=== PATIENT | male | born 1955 | race Caucasian/White ===

== ENCOUNTER 2017-05-12 23:00 | Inpatient (IN) | payer OTHER ==
[~2017-05-12] VITALS: Ht 182.9 cm; Wt 86.2 kg
--- NOTE | ~2017-05-12 | PN ---
Unit #: [id number] #: [id number] Patient: SURENDRA BERMEO [id number] [facility] [address] [place] [address] [id number] MR#: [id number] NAME: SURENDRA BERMEO. ROOM: P254 Age: 61 Sex: M Admission Date: 05/13/2017 : 1955 Attending Physician: Tej Gonzalez M.D. Admitting Physician: Tej Gonzalez M.D. Primary Care Physician: Primary Care Physician Linnette BAZAN PROGRESS NOTES DATE OF SERVICE 05/15/2017 DISCUSSION Mr. Bermeo is a 61-year-old white male who was seen today. Chart was reviewed and case was discussed with staff. He has been anxious, withdrawn, and rather seclusive to himself. Meanwhile, he has been cooperative with the treatment recommendations and has been taking the medications and tolerating them fairly well with no reported side effects. MENTAL STATUS EXAMINATION An elderly white male who is casually dressed with fair personal hygiene, appears to be in no acute distress or discomfort. He was awake and alert on interaction with intact orientation. His mood is anxious and depressed with congruent affect. His speech is slow and restricted in content. He reports having some suicidal ideations. He denies any homicidal ideations. His insight and judgment remain slightly impaired. TREATMENT PLAN 1. We will continue him on his current medications and treatment protocol. We will monitor his response to the medications and make further adjustments as needed. 2. We will continue to follow up. Dictated by... Dario Giordano/skylar TD: 05/16/2017 07:50 JOB #: [id number] Unit #: [id number] #: [id number] Patient: SURENDRA BERMEO PROGRESS NOTES Page 1 of 1 X Tej Gonzalez MD PROGRESS NOTE
--- NOTE | ~2017-05-12 | HP ---
Unit #: [id number] #: [id number] Patient: SURENDRA CRUZ [id number] [facility] [address] [place] [address] [id number] I MR#: [id number] NAME: SURENDRA CRUZ ROOM: P254 Age: 61 Sex: M Admission Date: 05/13/2017 : 1955 Attending Physician: Tej Gonzalez M.D. Admitting Physician: Tej Gonzalez M.D. Primary Care Physician: Primary Care Physician No HISTORY AND PHYSICAL HISTORY OF PRESENT ILLNESS Surendra is a 61-year-old male admitted on 05/13/2017 to [facility] for suicidal ideation with a plan to overdose on heroin. PAST MEDICAL HISTORY 1. Seizure disorder. 2. Hypertension. PAST SURGICAL HISTORY None. ALLERGIES No known drug allergies. SOCIAL HISTORY Smokes 1 pack of cigarettes daily. Occasional binge alcohol use and reports use of prescription pain pills. He is currently single and living alone. FAMILY HISTORY Noncontributory. REVIEW OF SYSTEMS CONSTITUTIONAL: No fever or chills. HEENT: Denies any sore throat, ear pain or runny nose. CARDIOVASCULAR: Denies chest pain, irregular heart rhythm or palpitations. CHEST: Denies shortness of breath or cough. No hemoptysis. GASTROINTESTINAL: Denies nausea, vomiting, diarrhea or chronic constipation. ENDOCRINE: Denies history of increased thirst or urination. No recent significant weight loss or gain. GENITOURINARY: Denies dysuria, frequency, or hematuria. SKIN: Denies any rashes. HEMATOLOGIC: Denies history of increased bleeding or bruising. MUSCULOSKELETAL: Denies any hot, swollen joints. No generalized muscle pain. NEUROLOGIC: Denies problems with vision or speech. No frequent, severe headaches. No numbness, tingling or weakness in any extremities. Denies loss of bladder or bowel control. CURRENT MEDICATIONS 1. B vitamin. 2. Seroquel. Unit #: [id number] #: [id number] Patient: SURENDRA CRUZ 3. Tegretol. 4. Prazosin. 5. Keppra. 6. Acamprosate. 7. Maxalt. 8. Clonidine. PHYSICAL EXAMINATION GENERAL: Alert, oriented, in no acute distress. VITAL SIGNS: Blood pressure 153/89, heart rate 72, respirations 18, temperature 98.6. HEIGHT: 6 feet 0. WEIGHT: 190 pounds. SKIN: Warm and dry without rash or lesion. HEENT: Normocephalic. TMs not viewed. Oral and nasal passages clear. Conjunctivae clear. PERRLA. EOMs intact. NECK: Supple without lymphadenopathy or thyromegaly. HEART: Regular rate and rhythm without murmur. LUNGS: Clear. ABDOMEN: Soft, nontender, without masses or hepatosplenomegaly. : Not done. EXTREMITIES: No evidence of cyanosis, clubbing or edema. Moves all without focal deficit. NEUROLOGICAL: Grossly within normal limits. Cranial Nerves: II: Visual mcarthur are intact. III, IV AND : Extraocular movements are intact. Pupils are equal, round and reactive to light. V: Facial sensation is grossly normal. VII: Facial movements and expression are normal. VIII: Auditory acuity grossly intact. IX, X: Uvula is midline. Phonation is normal. XI: Patient shrugs shoulders and turns head normally. XII: Tongue protrudes in the midline. Sensory and Motor Function: Sensory and motor sensation is grossly normal. Motor: moves all extremities well. Coordination: Gait is normal. Deep Tendon Reflexes: Intact. IMPRESSION 1. Psychiatric admission. 2. Hypertension. 3. Seizure disorder. RECOMMENDATIONS PSYCHIATRIC: Per psychiatrist. MEDICAL: No contraindication to participate in facility's activities. MEDICAL PROGNOSIS Good. MEDICAL CONDITION Stable. Dictated by... Janki Lerma A.P.R.N. [facility] Unit #: [id number] #: [id number] Patient: SURENDRA CRUZ TD: 05/13/2017 19:50 JOB #: [id number] HISTORY AND PHYSICAL Page 1 of 1 X JANKI GALEANA APRN HISTORY AND PHYSICAL
--- NOTE | ~2017-05-12 | PA ---
Unit #: [id number] #: [id number] Patient: SURENDRA BERMEO [id number] [facility] [address] [place] [address] [id number] I MR#: [id number] NAME: SURENDRA BERMEO ROOM: P254 Age: 61 Sex: M Admission Date: 05/13/2017 : 1955 Date of Assessment: Attending Physician: Tej Gonzalez M.D. Admitting Physician: Tej Gonzalez M.D. Primary Care Physician: Primary Care Physician No PSYCHIATRIC ASSESSMENT DATE OF SERVICE 05/13/2017. IDENTIFYING DATA Mr. Bermeo is a 61-year-old, single, disabled white male, who is a resident of [place], [place], and is known to us from previous encounters and was transferred to from [facility] Emergency Room on a voluntary basis. CHIEF COMPLAINT "Suicidal ideation with plan to overdose on heroin." HISTORY OF PRESENT ILLNESS Mr. Bermeo is a 61-year-old white male with a history of mood disorder and substance abuse, who is known to me from previous encounter, was transferred to us from the emergency room where he presented with suicidal ideation and a plan to overdose on heroin that he wants to kill himself and has been feeling like this for the last few days and he stated "I got to do it, I've the right to kill myself and do it on my own." The patient reports that this is his third time attempting to commit suicide though he denied making any attempts and just having a plan. When asked how he can be helped, he reports he cannot be helped. When asked why he came to the ER, he stated "give me a shot and I will show you how to kill myself." The patient reports suicidal ideation with plan to overdose and that he has had past suicide attempts. He does report increasing depression, anxiety, feelings of hopelessness and helplessness, and as such, recommendation for inpatient level of care for safety and stabilization was made. The patient was transferred to us. SUBSTANCE ABUSE HISTORY The patient reports history of alcohol, cannabis, cocaine, and opioid abuse, and reports that he is currently clean as he stated he had been to [facility] day program in [place] and has been staying sober since he went to the treatment. PAST PSYCHIATRIC HISTORY The patient has had a history of multiple inpatient psychiatric hospitalizations at [facility], and [facility] and chemical dependency treatment in [place] and review of the medical records indicate that he currently was supposed to be on Seroquel, but has been noncompliant with medication and as such, has been decompensating. Unit #: [id number] #: [id number] Patient: SURENDRA BERMEO PAST MEDICAL HISTORY The patient's medical history is significant for history of withdrawal seizures and migraine headaches. ALLERGIES No known medication allergies. PERSONAL AND SOCIAL HISTORY A 61-year-old white male, who reports that he is single, unemployed, and lives alone and has poor social support system. MENTAL STATUS EXAMINATION An elderly white male, who was casually dressed with fair personal hygiene, appears to be in no acute distress or discomfort. He was awake and alert on interaction with intact orientation to time, place, and person. His mood was anxious and depressed with a congruent affect. His speech was slow and goal directed. He reports having suicidal ideations, but denies any homicidal ideations, and also denies any auditory or visual hallucinations. His insight and judgment remain significantly impaired. DIAGNOSTIC IMPRESSION Psychiatric: Bipolar disorder, most recent episode depressed, recurrent, moderate, without psychotic features; opioid dependence, moderate. Medical: Migraine headaches, history of withdrawal seizures. Stressors: Moderate psychosocial stressors. TREATMENT PLAN 1. The patient has presented with history of mood disorder and substance abuse and has been decompensating with increasing depression, and will need inpatient hospitalization for safety and stabilization. We will start him back on his home medications. We will adjust the medications and monitor response. 2. Supportive therapy was provided to the patient. 3. Safe, structured, and nourishing environment will be reported. ESTIMATED LENGTH OF STAY 5 to 7 days. ABILITY TO HELP SELF Limited. WILLINGNESS TO HELP SELF The patient appears to be willing to help self. STRENGTHS 1. Communicative. 2. Cooperative. PROBLEMS 1. Chronic dysphoric symptoms. 2. Poor social support system. DISCHARGE CRITERIA This will be contingent upon the patient's ability to show resolution of his depression and anxiety as well as his ability to stay safe to himself, particularly after discharge from the hospital. Unit #: [id number] #: [id number] Patient: SURENDRA BERMEO Dictated by... Dario Giordano/chase CEE: 05/13/2017 07:08 TD: 05/13/2017 08:12 JOB #: [id number] PSYCHIATRIC ASSESSMENT Page 1 of 1 X Tej Gonzalez MD PSYCHIATRIC ASSESSMENT
--- NOTE | ~2017-05-12 | PN ---
Unit #: [id number] #: [id number] Patient: SURENDRA BERMEO [id number] [facility] [address] [place] [address] [id number] MR#: [id number] NAME: SURENDRA BERMEO. ROOM: P254 Age: 61 Sex: M Admission Date: 05/13/2017 : 1955 Attending Physician: Tej Gonzalez M.D. Admitting Physician: Tej Gonzalez M.D. Primary Care Physician: Primary Care Physician Linnette ANDUJAR NOTES DATE OF SERVICE 05/18/2017 DISCUSSION Mr. Bermeo is a 61-year-old white male who was seen today. Chart was reviewed and case was discussed with the staff. (1) __ rather seclusive to himself. Meanwhile, he has been cooperative with the treatment recommendations and has been taking the medications and tolerating them fairly well with no reported side effects. MENTAL STATUS EXAMINATION An elderly white male who is casually dressed with fair personal hygiene, appears to be in no acute distress or discomfort. He was awake and alert with impaired attention and concentration. His mood is anxious with a congruent affect. He denies any suicidal or homicidal ideations and also denies any auditory or visual hallucinations. His insight and judgment remain slightly impaired. TREATMENT PLAN 1. We will continue him on his current treatment protocol. We will monitor his response to medications and make further adjustments as needed. 2. We will continue to follow up. Dictated by... Tej Gonzalez M.D. IAA/bzg TD: 05/19/2017 07:43 JOB #: [id number] Unit #: [id number] #: [id number] Patient: SURENDRA BERMEO PROGRESS NOTES Page 1 of 1 X Tej Gonzalez MD PROGRESS NOTE
--- NOTE | ~2017-05-12 | DS ---
Unit #: [id number] #: [id number] [facility] [id number] [facility] [address] [place] [address] [id number] MR#: [id number] NAME: SURENDRA EBRMEO. ROOM: P254 Age: 61 Sex: M Admission Date: 05/13/2017 : 1955 Discharge Date: 05/19/2017 Attending Physician: Tej Gonzalez M.D. Primary Care Physician: Primary Care Physician No DISCHARGE SUMMARY IDENTIFYING DATA Mr. Bermeo is a 61-year-old, single, white male who is a resident of [place], [place], and is known to us from previous encounter, and was self-referred to the hospital on a voluntary basis. DISCHARGE DIAGNOSES Psychiatric: Bipolar disorder, most recent episode depressed, recurrent, moderate, without psychotic features; opioid dependence, moderate. Medical: Migraine headache, history of withdrawal seizures. Stressors: Mild psychosocial stressors. HISTORY OF PRESENT ILLNESS Please see initial psychiatric evaluation for details. PAST PSYCHIATRIC HISTORY Please see initial psychiatric evaluation for details. PAST MEDICAL HISTORY Please see initial psychiatric evaluation for details. HOSPITAL COURSE The patient was admitted to the adult psychiatric unit at [facility] anal[facility] and was oriented to the hospital environment. Routine p.r.n. medications were initiated, and he was started back on his home medications and medications were adjusted, and Effexor and lithium were maintained and lithium actually was tapered down from 900 to 600 mg a day due to elevated lithium levels and was seen to be doing much better and was calm and cooperative and compliant with treatment recommendations, and was taking the medications regularly. He is tolerating them fairly well and was able to show a decent therapeutic response and was willing to continue treatment on an outpatient basis. He was denying any suicidal or homicidal ideations and as such, it was decided that he will be discharged home and will continue treatment on an outpatient basis. DISCHARGE MEDICATIONS Effexor XR 75 mg a day for depression and lithium 600 mg a day for bipolar. DISCHARGE CONDITION Stable. PROGNOSIS Fair. Unit #: [id number] #: [id number] Patient: SURENDRA BERMEO Dictated by... Dario Giordano/chase TD: 05/19/2017 19:36 JOB #: [id number] DISCHARGE SUMMARY Page 1 of 1 X Tej Gonzalez MD DISCHARGE SUMMARY
--- NOTE | ~2017-05-12 | PN ---
Unit #: [id number] #: [id number] Patient: SURENDRA BERMEO [id number] [facility] [address] [place] [address] [id number] MR#: [id number] NAME: SURENDRA BERMEO. ROOM: P254 Age: 61 Sex: M Admission Date: 05/13/2017 : 1955 Attending Physician: Tej Gonzalez M.D. Admitting Physician: Tej Gonzalez M.D. Primary Care Physician: Primary Care Physician Linnette ANDUJAR NOTES DATE May 14, 2017 DISCUSSION Mr. Bermeo is a 61-year-old white male, who was seen today and chart was reviewed and the case was discussed with the staff. He has been anxious and withdrawn, and reports persistent depressive symptoms with feelings of hopelessness. Meanwhile, he has been taking the medications and the medications were adjusted yesterday, and he has not had time to respond to medication. MENTAL STATUS EXAMINATION An elderly white male, who was casually dressed with fair personal hygiene and appears to be in no acute distress or discomfort. He was awake and alert with impaired attention and concentration. His mood is anxious with a congruent affect. He denies any suicidal or homicidal ideations. His insight and judgment remain slightly impaired. TREATMENT PLAN 1. We will continue him on his current medications and treatment protocol, and will monitor his response to the medications, and make further adjustments as needed. 2. We will continue to followup. Dictated by... Dario Giordano/brenden TD: 05/15/2017 09:43 JOB #: [id number] Unit #: [id number] #: [id number] Patient: SURENDRA BERMEO HORTENS[facility] PROGRESS NOTES Page 1 of 1 X Tej Gonzalez MD PROGRESS NOTE
--- NOTE | ~2017-05-12 | PN ---
Unit #: [id number] #: [id number] Patient: SURENDRA BERMEO [id number] [facility] [address] [place] [address] [id number] MR#: [id number] NAME: SURENDRA BERMEO. ROOM: P254 Age: 61 Sex: M Admission Date: 05/13/2017 : 1955 Attending Physician: Tej Gonzalez M.D. Admitting Physician: Tej Gonzalez M.D. Primary Care Physician: Primary Care Physician Linnette ANDUJAR NOTES DATE May 16, 2017 DISCUSSION Mr. Bermeo is a 61-year-old white male, who was seen today and chart was reviewed and the case was discussed with the staff. He has been anxious, withdrawn, and rather seclusive to himself. Meanwhile, he has been cooperative with the treatment recommendations and he has been taking the medications and tolerating them fairly well with on reported side effects. MENTAL STATUS EXAMINATION An elderly white male, who was casually dressed with fair personal hygiene and appears to be in no acute distress or discomfort. He was awake and alert on interaction with intact orientation. His mood is anxious with a congruent affect. He denies any suicidal or homicidal ideations. His insight and judgment remain slightly impaired. TREATMENT PLAN 1. We will continue him on his current medications and treatment protocol, and will monitor his response to the medications, and make further adjustments as needed. 2. We will continue to followup. Dictated by... Dario Giordano/brenden TD: 05/18/2017 10:46 JOB #: [id number] Unit #: [id number] #: [id number] Patient: SURENDRA BERMEO PROGRESS NOTES Page 1 of 1 X Tej Gonzalez MD PROGRESS NOTE
--- NOTE | ~2017-05-12 | PN ---
Unit #: [id number] #: [id number] Patient: SURENDRA BERMEO [id number] [facility] [address] [place] [address] [id number] MR#: [id number] NAME: SURENDRA BERMEO ROOM: P254 Age: 61 Sex: M Admission Date: 05/13/2017 : 1955 Attending Physician: Tej Gonzalez M.D. Admitting Physician: Dario Giordano NOTES DATE OF SERVICE: 05/17/2017 SUBJECTIVE Mr. Bermeo is a 61-year-old white male who was seen today and chart was reviewed, and case was discussed with the staff. He has been anxious, withdrawn, and rather seclusive himself. Meanwhile, he has been cooperative with treatment recommendations and has been showing improvement in depressive symptoms. MENTAL STATUS EXAMINATION An elderly white male who was casually dressed with fair personal hygiene, appears to be in no acute distress or discomfort. He was awake and alert with impaired attention and concentration. His mood was anxious with a congruent affect. He denies any suicidal or homicidal ideations. His insight and judgment remain slightly impaired. TREATMENT PLAN 1. We will continue him on his current treatment protocol. We will monitor his response to medications and make further adjustments as needed. 2. We will continue to follow up. Dictated by... Dario Giordano/dahianal TD: 05/17/2017 14:30 JOB #: [id number] [facility] ANDUJAR NOTES Page 1 of 1 X Tej Gonzalez MD PROGRESS NOTE
[2017-05-13 09:45] LABS: BASOPHIL# 0.1 X10e3 (0-0.3); BASOPHIL% 0.7 % (0-2.5); EOSINOPHIL# 0.2 X10e3 (0-0.7); EOSINOPHIL% 1.9 % (0.0-7.0); HEMATOCRIT 39.8 % (38.0-50.0); HEMOGLOBIN 12.7 gm/dL (13.0-16.0); LYMPHOCYTE# 1.6 X10e3 (1.0-3.5); MEAN CELL VOLUME 89.4 FL (83-96); MEAN CORPUSCULAR HEMOGLOBIN 28.5 PG (28-34); MEAN CORPUSCULAR HGB CONC 31.9 g/dL (30-36); MEAN PLATELET VOLUME 11.5 FL (6.5-11.5); MONOCYTE# 0.7 X10e3 (0-1.0); MONOCYTE% 6.2 % (3.0-12.0); NEUTROPHIL# 9.3 X10e3 (1.5-7.1); NEUTROPHIL% 78.2 % (40-75); PLATELET COUNT 243 X10e3 (140-420); RED BLOOD COUNT 4.46 X10e (3.90-5.60); RED CELL DISTRIBUTION WIDTH 13.6 % (11.0-15.5); WHITE BLOOD COUNT 11.9 X10e3 (4.0-10.5)
[2017-05-13 09:57] LABS: BILIRUBIN,TOTAL 0.5 mg/dL (0.2-2.0); CALCIUM SERUM 9.4 mg/dL (8.4-10.2); CREATININE SERUM 1.3 mg/dL (0.6-1.4); GLOM FILT RATE Estimated 58.9 mL/min (>60); POTASSIUM 3.7 mmol/L (3.5-5.1); PROTEIN TOTAL SERUM 7.5 g/dL (6.0-8.3)
[2017-05-13 10:15] LABS: DIFF IND NO
[2017-05-15 09:57] LABS: URINE APPEARANCE CLOUDY; URINE BILIRUBIN NEG (NEG); URINE BLOOD NEG (NEG); URINE COLOR YELLOW; URINE GLUCOSE NORM (NORM); URINE KETONE NEG (NEG); URINE LEUKOCYTE ESTERASE NEG (NEG); URINE NITRATE NEG (NEG); URINE PROTEIN NEG (NEG); URINE UROBILINOGEN NORM (NORM)
[2017-05-15 11:09] LABS: AMPHETAMINE NEG (NEG); BARBITURATES NEG (NEG); BENZODIAZEPINES NEG (NEG); COCAINE NEG (NEG); MARIJUANA NEG (NEG); OPIATES NEG (NEG); TRICYCLIC ANTIDEPRESSANTS POS (NEG); U METHADONE NEG (NEG)
== END 2017-05-19 10:00 | disposition home or self-care (01) | DRG 885 ==
LOC: P2L 05-13 02:51
PROVIDERS: Psychiatry & Neurology Psychiatry
DX: F31.32 Bipolar disorder, current episode depressed, moderate (principal); R45.851 Suicidal ideations; F11.20 Opioid dependence, uncomplicated; G40.901 Epilepsy, unspecified, not intractable, with status epilepticus; I10 Essential (primary) hypertension; F17.210 Nicotine dependence, cigarettes, uncomplicated
CPT/HCPCS: 80053; 80178; 80307; 81003; 85025; J3420